=== PATIENT | female | born 1980 | race Caucasian/White ===

== ENCOUNTER → 2016-11-29 16:26 | Outpatient (CLI) | payer OTHER ==
[2015-06-01 14:14] VITALS: BMI 35.8
[~2016-11-29 16:26] MED LIST: ADDERALL 10 MG10 MG PO; ANOLOR-300 CAPS1 CAP PO; BENADRYL50 MG PO; DEPO-PROVER150 MG/ML IM; HYDROCODONE-APA1 TAB PO; IBUPROFEN800 MG PO; IMITREX50 MG PO; ISOPTO CARPINE15 ML EACH EYE; LYRICA200 MG PO; MS CONTIN30 MG PO; NEURONTIN 300300 MG PO; NEURONTIN 400400 MG PO; PREDNISONE20 MG PO; PSEUDO-GEST60 MG PO; SOMA350 MG PO; VALIUM5 MG PO; VENTOLIN HFA18 GM INH; ZANAFLEX6 MG PO; ZANTAC150 MG PO
[2016-11-29 16:48] LABS: BASOPHILS 0.2 % (0.0-2.0); EOSINOPHILS 2.5 % (0-7); HEMATOCRIT 36.9 % (36.0-48.0); HEMOGLOBIN 11.8 g/dL (12-16); IMMATURE GRANULOCYTES 0.4 % (0-5); LYMPHOCYTES 38.4 % (15-50); MCH 28.3 pg (26.0-34.0); MCV 88.5 fL (80.0-100.0); MEAN PLATELET VOLUME 10.5 fL (7.4-10.4); MONOCYTES 6.5 % (2-11); PLATELET COUNT 230 10x3/uL (130-400); RBC 4.17 10x6/uL (4.00-5.40); RDW 13.2 % (11.5-14.5)
[2016-11-29 17:20] LABS: ALBUMIN 2.9 g/dL (3.4-5.0); ALKALINE PHOSPHATASE 92 U/L (46-116); ALT (SGPT) 38 U/L (10-68); BILIRUBIN - TOTAL 0.21 mg/dL (0.2-1.3); CALC OSMOLALITY 282 mosm/kg (275-300); CALCIUM 8.5 mg/dL (8.5-10.1); CARBON DIOXIDE 26.8 mmol/L (21.0-32.0); CHLORIDE - SERUM 105 mmol/L (98-107); CREATININE - SERUM 0.6 mg/dL (0.6-1.3); GLUCOSE 197 mg/dL (74-106); POTASSIUM - SERUM 3.9 mmol/L (3.5-5.1); PROTEIN - SERUM 6.5 g/dL (6.4-8.2); SODIUM 140 mmol/L (136-145); UREA NITROGEN 9 mg/dL (7-18); eGFR NON AFRICAN AMERICAN > 90 mL/min (90-120)
== END | disposition home or self-care (01) ==
LOC: D.LAB 16:26
PROVIDERS: Family Medicine
DX: R19.7 Diarrhea, unspecified (principal)

== ENCOUNTER 2017-01-03 05:45 | Day surgery (SDC) | payer OTHER ==
[2017-01-02 12:29] LABS: HEMATOCRIT 42.5 % (36.0-48.0); HEMOGLOBIN 13.6 g/dL (12-16); MCH 28.5 pg (26.0-34.0); MCV 89.1 fL (80.0-100.0); MEAN PLATELET VOLUME 10.4 fL (7.4-10.4); RBC 4.77 10x6/uL (4.00-5.40); RDW 13.2 % (11.5-14.5); WBC 12.2 10x3/uL (4.8-10.8)
[~2017-01-03] VITALS: Ht 177.8 cm; Wt 168.7 kg
--- NOTE | ~2017-01-03 | OP ---
PATIENT NAME: ELIZABETH HERNANDEZ MEDICAL RECORD: [id number] :78 LOCATION:[facility] ADMISSION DATE: SURGEON: ALIN WILLIAMSON DPM DATE OF OPERATION: 01/03/2017 PREOPERATIVE DIAGNOSES: Arthritis, right ankle, ruptured anterior talofibular ligament of the right ankle and ruptured calcaneofibular ligament of the right ankle. POSTOPERATIVE DIAGNOSES: Arthritis, right ankle, ruptured anterior talofibular ligament of the right ankle and ruptured calcaneofibular ligament of the right ankle. PROCEDURES: 1. Ankle arthroscopy of the right ankle with extensive debridement. 2. Gastroc recession of the right posterior leg with harvest of the aponeurosis graft for CFL and ATFL repair. 3. CFL repair, right ankle. 4. ATFL repair, right ankle. ANESTHESIA: General with preoperative popliteal block per the anesthesia department as well as infiltration of Marcaine in the ankle joint, approximately 10 cc preoperatively. HEMOSTASIS: Right thigh tourniquet at 350 mmHg. PREOPERATIVE DETAILS: The patient was taken to the OR and placed on the operative table in supine position. This was followed by induction of general anesthesia. The right extremity was then prepped and draped in usual aseptic technique. Infiltration of Marcaine was then performed 10 cc in right ankle joint. The right extremity was then exsanguinated and the tourniquet was inflated. PROCEDURE #1: Ankle scope of the right ankle. A small stab incision was made over the anterolateral aspect of the right ankle. Dissection was carried down to the joint capsule, which was punctured bluntly with a blunt trocar and cannula. The camera was then inserted in the lateral portal. 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 At this time, a small stab incision was made over the anterior medial shoulder of the ankle joint. Dissection was carried down to the ankle joint bluntly and the joint was punctured with a blunt trocar and cannula. The synovial shaver was then introduced medially and the joint was debrided both the hypertrophied capsule as well as the chondromalacia. A ball shaver was then introduced and the spurring on the anterior dorsal aspect of the talus, spurring was removed. Range of motion was evaluated under the arthroscopy noted to be normal dorsiflexion, plantar flexion and inversion. There was increased talar tilt, which was significant. There was also significant anterior drawer with displacement of the talus anteriorly. The portals were switched with the camera medial and the debrider lateral. Continued extensive debridement was performed at the hypertrophied capsule as well as the chondromalacia. Upon running the camera along the gutters of the ankle joint, there was noted to be a total disruption of the ATFL. CFL was not visualized due to its extracapsular nature. The camera and shaver were then removed. PROCEDURE #2: Gastroc recession with harvesting of graft on the right posterior OPERATIVE REPORT [id number] [facility] with the hip held in flexion with the leg extended. The posterior aspect of the right leg was acquired. A small 4-cm linear incision was made over the first posterior aspect of the gastroc aponeurosis. Dissection was carried down bluntly through adipose tissue to the paratenon. An linear incision was made in the paratenon, fraying the aponeurosis. An 8 cm x 1 cm graft was then removed from the aponeurosis. The aponeurosis was then repaired with 2-0 Vicryl. The subcutaneous tissue was closed with 4-0 Rapide and the skin was closed with skin tatiana. The graft was placed immediately in saline solution. PROCEDURE #3: CFL repair, right ankle. The small stab incision that was over the lateral shoulder of the ankle was extended distally and posteriorly underneath the fibula in a J shape. The incision was deepened down through subcutaneous tissue through adipose tissue. There was significant adipose tissue in this area, which was resected and removed from the wound. Dissection was carried down to the joint capsule where a capsular incision was made at the ankle joint, giving access to the anterior lateral aspect of the ankle joint. Dissection was carried down through the deep tissue distal to the fibula, giving access to the CFL. The peroneal tendons were retracted in the wound giving access to the lateral wall of the calcaneus. Small drill holes were made in the calcaneus with implant into the calcaneus with the internal brace attached to the anchor. A small drill hole was then drilled in the fibula in the location of the attachments of the CF ligament. At this time, utilizing bone anchors, the internal brace was secured from the calcaneus to the distal fibula with the anatomical coursing of the CFL. Once this was in place, the part of the graft that was harvested was then laid over the top of the internal brace and sutured in place with 0 FiberWire and 2-0 FiberWire giving an excellent rigid fixation. Upon completion of the repair of the CFL ligament, there was normal inversion of the foot, but there was no more talar tilt with inversion of the foot. Tailor tilt was now reduced to about 2 degrees. PROCEDURE #4: ATFL repair, right ankle. The internal brace was used to repair the ATFL or reconstruct it. Similar to the CFL repair, a drill hole was made in the lateral aspect of the talus, anterior to the cartilaginous surface. Another drill hole was made in the distal anterior fibula. The anchor was placed in the talus first with the internal brace connected and then an anchor was placed in the fibula with the internal brace connected as well with the foot held in dorsiflexion giving excellent repair of the ATFL and stability of the ankle joint, both in plantarflexion, dorsiflexion, anterior drawer, as well as inversion stress test. Following internal brace, I did use the remainder of the aponeurosis graft, laid over the internal brace on the ATFL, secured it securely in the periosteal tissue, both the talus and the fibula. The wound was flushed. The modified Brostrom was then performed gathering the deep tissue and securing it to the fibula, giving added security to the ankle ligaments. A 2-0 Vicryl was also used to close deep tissue, 4-0 Rapide was used to close the subcutaneous tissue and 4-0 Rapide in a subcuticular technique was used to close the skin. The medial incision over the anterior medial shoulder of the ankle was closed with 4-0 Rapide in a simple interrupted technique. These incisions were topped with a Dermabond. Adaptic, 4 x 4 and Conform were used to dress all wounds followed by application of a modified Flowers compression dressing. Tourniquet was deflated. POSTOPERATIVE DETAILS: The patient tolerated the procedure well and left the OR with vital signs stable and vascular status at preoperative levels. The patient was transported to recovery per anesthesia in stable condition. OPERATIVE REPORT [id number] ELIZABETH HERNANDEZ TRANSINT:[id number] Voice Confirmation ID: [id number] DOCUMENT ID: [id number] ALIN WILLIAMSON DPM CC: [id number] DICTATION DATE: 01/03/17 1019 [place] MAN: 01/03/17 1656 [facility] 01/03/17 [place] [id number] [place] [id number]
[~2017-01-03 05:45] MED LIST changes: -ANOLOR-300 CAPS1 CAP PO; -IMITREX50 MG PO; -MS CONTIN30 MG PO; -NEURONTIN 400400 MG PO; -VENTOLIN HFA18 GM INH; -ZANAFLEX6 MG PO
[2017-01-03] MEDS ORDERED: NEURONTIN 400400 MG PO (05:59)
[2017-01-03] MEDS ORDERED: ANOLOR-300 CAPS1 CAP PO (06:02)
[2017-01-03] MEDS ORDERED: ZANAFLEX6 MG PO (06:03)
[2017-01-03] MEDS ORDERED: MS CONTIN30 MG PO (06:03)
[2017-01-03] MEDS ORDERED: IMITREX50 MG PO (06:04)
[2017-01-03] MEDS ORDERED: VENTOLIN HFA18 GM INH (06:14)
[2017-01-03 06:16] VITALS: BP 120/63; Ht 177.8 cm; Wt 168.7 kg
[2017-01-03 07:12] LABS: HCG SERUM NEGATIVE (NEGATIVE)
--- NOTE | 2017-01-03 10:20 | NUR ---
THE PATIENT AWAKENED WITH HER CHRONIC BACK PAIN
--- NOTE | 2017-01-03 12:30 | NUR ---
FAMILY FOR [facility] HAS ARRIVED. DISCHARGED HOME VIA .
== END 2017-01-03 12:30 | disposition home or self-care (01) ==
LOC: D.OPS 05:45 → D.PAN 07:30 → D.OPS 07:30 → D.PAN 08:30 → D.OPS 08:30
PROVIDERS: Anesthesiology
DX: M13.871 Other specified arthritis, right ankle and foot (principal); S93.491A Sprain of other ligament of right ankle, initial encounter; S93.411A Sprain of calcaneofibular ligament of right ankle, initial encounter

== ENCOUNTER 2017-01-21 06:06 | Emergency (ER) | payer OTHER ==
[2017-01-03 06:16] VITALS: BMI 53.4
[~2017-01-21 06:06] MED LIST changes: +ANOLOR-300 CAPS1 CAP PO; +IMITREX50 MG PO; +MS CONTIN30 MG PO; +NEURONTIN 400400 MG PO; +VENTOLIN HFA18 GM INH; +ZANAFLEX6 MG PO
[2017-01-21 07:11] LABS: BASOPHILS 0.2 % (0-2); EOSINOPHILS 0.1 % (0-7); HEMOGLOBIN 15.5 g/dL (12-16); IMMATURE GRANULOCYTES 0.5 % (0-5); LYMPHOCYTES 22.7 % (15-50); MCH 27.9 pg (26.0-34.0); MCHC 32.3 g/dL (31.0-37.0); MCV 86.5 fL (80.0-100.0); MEAN PLATELET VOLUME 11.5 fL (7.4-10.4); MONOCYTES 4.6 % (2-11); NEUTROPHILS 71.9 % (40-80); RBC 5.55 10x6/uL (4.00-5.40); RDW 13.4 % (11.5-14.5); WBC 12.3 10x3/uL (4.8-10.8)
[2017-01-21 07:12] LABS: PLATELET COUNT 375 10x3/uL (130-400)
[2017-01-21 07:32] LABS: ALBUMIN 3.9 g/dL (3.4-5.0); ANION GAP 21.8 mmol/L (8-16); BILIRUBIN - TOTAL 0.21 mg/dL (0.2-1.3); CALCIUM 10.5 mg/dL (8.5-10.1); CARBON DIOXIDE 21.9 mmol/L (21.0-32.0); CREATININE - SERUM 1.1 mg/dL (0.6-1.3); POTASSIUM - SERUM 3.7 mmol/L (3.5-5.1); PROTEIN - SERUM 8.8 g/dL (6.4-8.2)
[2017-01-21 07:55] LABS: MAGNESIUM - SERUM 1.8 mg/dL (1.8-2.4)
[2017-01-21 07:58] LABS: APPEARANCE CLEAR (CLEAR); BILIRUBIN NEGATIVE (NEGATIVE); COLOR YELLOW (YELLOW); GLUCOSE 500 mg/dL (NEGATIVE); KETONE MODERATE mg/dL (NEGATIVE); LEUKOCYTE ESTERASE NEGATIVE (NEGATIVE); NITRITE NEGATIVE (NEGATIVE); PROTEIN TRACE mg/dL (NEGATIVE); UROBILINOGEN NORMAL (NORMAL)
[2017-01-21 16:01] LABS: HEMOGLOBIN A1C 9.5 % (4.8-6.0)
== END 2017-01-21 12:15 | disposition home or self-care (01) ==
LOC: D.ER 06:06
PROVIDERS: Emergency Medicine
DX: A08.4 Viral intestinal infection, unspecified (principal); E86.0 Dehydration; R00.0 Tachycardia, unspecified

== ENCOUNTER 2017-01-24 20:30 | Observation (INO) | payer OTHER ==
[~2017-01-24] VITALS: Ht 177.8 cm; Wt 158.3 kg
[2017-01-25 02:27] LABS: BASOPHILS 0.3 % (0-2); EOSINOPHILS 0.8 % (0-7); HEMATOCRIT 46.9 % (36.0-48.0); HEMOGLOBIN 15.5 g/dL (12-16); IMMATURE GRANULOCYTES 0.3 % (0-5); LYMPHOCYTES 43.5 % (15-50); MCH 28.2 pg (26.0-34.0); MCV 85.4 fL (80.0-100.0); MEAN PLATELET VOLUME 10.8 fL (7.4-10.4); NEUTROPHILS 48.1 % (40-80); RBC 5.49 10x6/uL (4.00-5.40); RDW 13.9 % (11.5-14.5); WBC 10.9 10x3/uL (4.8-10.8)
[2017-01-25 02:33] LABS: KETONE - SERUM NEGATIVE (NEGATIVE)
[2017-01-25 02:35] LABS: PLATELET COUNT 274 10x3/uL (130-400)
[2017-01-25 02:41] LABS: ALKALINE PHOSPHATASE 149 U/L (46-116); ALT (SGPT) 33 U/L (10-68); BILIRUBIN - TOTAL 0.26 mg/dL (0.2-1.3); CALC OSMOLALITY 288 mosm/kg (275-300); CALCIUM 10.1 mg/dL (8.5-10.1); CARBON DIOXIDE 23.2 mmol/L (21.0-32.0); CHLORIDE - SERUM 99 mmol/L (98-107); CREATININE - SERUM 1.2 mg/dL (0.6-1.3); MAGNESIUM - SERUM 1.8 mg/dL (1.8-2.4); POTASSIUM - SERUM 3.3 mmol/L (3.5-5.1); PROTEIN - SERUM 8.8 g/dL (6.4-8.2); SODIUM 140 mmol/L (136-145); UREA NITROGEN 13 mg/dL (7-18); eGFR NON AFRICAN AMERICAN 53 mL/min (90-120)
[2017-01-25 02:44] LABS: GLUCOSE 276 mg/dL (74-106)
[2017-01-25 09:30] VITALS: BMI 50.1
[2017-01-25 12:30] VITALS: BP 142/116
--- NOTE | 2017-01-25 12:30 | NUR ---
PT AWAKE AND ALERT. TEMP 99.2(0). HR-122 BPM, RESP-20 BPM, BP-140/116. V/S REPORTED TO RN ON SHIFT.
--- NOTE | 2017-01-25 13:43 | NUR ---
METOPROL 50MG GIVEN PO FOR ELEVATED B/P. PT AWAKE AND ALERT AND SITTING UP IN BED.
[2017-01-25 15:00] VITALS: Ht 177.8 cm; Wt 158.3 kg
--- NOTE | 2017-01-25 15:24 | NUR ---
DR CORREA ROOM 1500. THIS NURSE INFORMED OF BLOOD PRESSURE READING OF 142/116. PHYSICIAN STATES THAT HE WILL ADDRESS THE POSSIBILITY OF ADDITIONAL MEDICATION WHEN HE GETS TO A COMPUTOR.
--- NOTE | 2017-01-25 15:48 | NUR ---
PHARMACY NOTIFIED OF NEED FOR PT MEDICATIONS- PROTONIX, NEUROTIN AND LYRICA.
--- NOTE | 2017-01-25 16:17 | NUR ---
PT REQUESTS HOLDING PROTONIX FOR ONE HOUR SO OTHER MEDICATIONS WILL ABSORB. THANK YOU.
--- NOTE | 2017-01-25 16:50 | NUR ---
PT RESTING QUIETLY WITH EYES CLOSED. TEMP 99.3 (0). HR-81 BPM, RESP-16 BPM, BP-91/59.
--- NOTE | 2017-01-25 17:02 | NUR ---
ADMINISTERED 6 UNITS OF HUMALOG ORDERED AND PRESCRIBED ON SLIDING SCALE FOR FSBS OF 275. TOLERATED WELL. S/R UP X 2, BED IN LOWEST POSITION, CALL LIGHT WITHIN REACH. STATES NO FURTHER NEEDS AT THIS TIME.
[2017-01-25 17:35] LABS: THYROID STIMULATING HORMONE 1.16 uIU/mL (0.36-3.74)
--- NOTE | 2017-01-25 18:01 | NUR ---
ALLERGY BANDS IN PLACE.
--- NOTE | 2017-01-25 19:30 | NUR ---
PM ROUNDS MADE, PT VISITING WITH FAMILY AND FRIENDS, INFORMED PT THAT I WILL RETURN SHORTLY TO DO ASSESSMENT, PT VERBALIZES UNDERSTANDING, REQUESTED AND SERVED CUP OF ICE, DENIES FURTHER NEEDS
[2017-01-25 20:20] VITALS: BP 142/95
--- NOTE | 2017-01-25 20:20 | NUR ---
BP 142/95 PT COMPLAINING OF ANXIETY REQUESTED MEDS. EXPLAINED THAT WE WILL CHECK HER MAR. ASKED ABOUT FREQUENCY OF BLOOD SUGAR CHECKS STATED THAT WILL CHECK THE ORDERS. ASKED ABOUT BANDAGE CHANGE FOR ANKLE. EXPLAINED WE WILL BRING IN GAUZE AND TAPE FOR CHANGE WHEN WE BRING MEDS.
--- NOTE | 2017-01-25 20:35 | NUR ---
ASSESSMENT PER FLOW SHEET, SALINE LOCK IN LEFT UPPER CHECT INTACT WITH NO REDNESS OR EDEMA AROUND SITE, TELEMETRY IN PLACE, PT REPORTS FLATUS, NO BM AND VOIDING BY SELF WITH NO DIFFICULTY, DRESSING AROUND RIGHT ANKLE INTACT WITH NO DRAINAGE NOTED, INFORMED PT THAT MELINDA URBAN RN WILL BE IN TO ADM MEDS, PT VERBALIZES UNDERSTANDING, DENIES NEEDS AT THIS TIME, FAMILY AND FRIENDS AT BEDSIDE
--- NOTE | 2017-01-25 21:30 | NUR ---
MEDS GIVEN PER MAR. PROVIDED TEACHING ON LANTUS AND REGULAR INSULINPROVIDED. DSTICK 208. ENC SNACK OF GRAHM CRACKERS AND MILK. EXPLAINED THAT AT NIGHT BLOOD SUGARS CACN DROP WITHOUT A PROTEIN SNACK TO KEEP THEM UP. IV IN LEFT CHEST INFILTRATED. NOTIFIED MD TO RECIEVE ORDERS FOR PO MEDS. PT AGREED STATING SHE IS A HARD STICK AND THEY HAD A VERY HARD TIME GETTING HER IV EARLIER.
--- NOTE | 2017-01-25 22:15 | NUR ---
NIKA STEPHEN NP, PAGED
--- NOTE | 2017-01-25 22:20 | NUR ---
NIKA STEPHEN CALLS UNIT, REPORT OF SALINE LOCK NO LONGER PATENT, AND THAT ATIVAN AND HYDRALAZINE IS IV, ORDERS TO CHANGE TO PO
--- NOTE | 2017-01-25 23:00 | NUR ---
HYDROCODONE GIVEN PER NOV. PT CO PAIN IN THE BACK OF THE LEG FROM PREVIOUS SURGERY. STATED SHE USUALLY TAKES MORPHINE SULFATE ON TIME AND SHE MISSED IT EARLIER SO SHE IS HAVING BREAK THROUGH PAIN.
[2017-01-25 23:45] VITALS: BP 132/73
--- NOTE | 2017-01-25 23:45 | NUR ---
PT RESTING WITH EYES CLOSED, AROUSES TO SOFT VERBAL STIMULATION, VS OBTAINED, PT RATES PAIN 03/12, STATES "OH, IT'S GETTING BETTER, IT'S JUST BECAUSE I'M NOT GETTING MY PAIN PILLS LIKE I TAKE THEM AT HOME, I ONLY TAKE THEM THE BOTTLE SAYS", PT DENIES NEEDS AT THIS TIME
[2017-01-26] VITALS (8 sets, daily range): BP systolic 113–169; BP diastolic 70–116
--- NOTE | 2017-01-26 00:30 | NUR ---
PT RESTING WITH EYES CLOSED, RESP QUIET, NO DISTRESS NOTED, LEFT UNDISTURBED AT THIS TIME
--- NOTE | 2017-01-26 02:33 | NUR ---
PT RESTING WITH EYES CLOSED, RESP QUIET, NO DISTRESS NOTED, LEFT UNDISTURBED AT THIS TIME
--- NOTE | 2017-01-26 03:10 | NUR ---
RECEIVED CALLED FROM TELEMETRY, INFORMED OF HR 156, THIS RN TO ROOM, PT COMING OUT OF BR, GAIT STEADY, PT REPORTS NOT FEELING TOO WELL, PT BACK TO BED FOR EVALUATION, VS INITIATED, TAWANDA SHARP RN, CHARGE NURSE NOTIFIED
--- NOTE | 2017-01-26 03:14 | NUR ---
TAWANDA SHARP RN TO ROOM FOR EVALUAION, GAVE REPORT OF HR AND BP, WILL CONTINUE TO MONITOR
--- NOTE | 2017-01-26 03:16 | NUR ---
TAWANDA SHARP RN, CHARGE NURSE, CALLED MICHAEL ABBASI RENTAL CAR FERRY DRIVER FOR EVALUATION
--- NOTE | 2017-01-26 03:31 | NUR ---
RECEIVED ATIVAN FROM [facility], THIS RN TO ROOM, ADM ATIVAN SUBLINGUAL PER HYDROLOGY TEACHER SUGGESTION
--- NOTE | 2017-01-26 03:45 | NUR ---
FSBS 188, PT STARTING TO FEEL SOMEWHAT BETTER
--- NOTE | 2017-01-26 03:46 | NUR ---
ADM PAIN MED PO PER MD ORDERS
--- NOTE | 2017-01-26 04:30 | NUR ---
PT TALKING ON PHONE TO MOTHER, RATES ANKLE PAIN 5/10, REPORTS "STARTING TO FEEL BETTER", DENIES NEEDS
--- NOTE | 2017-01-26 06:31 | NUR ---
PT AWAKE, OBTAINED BP 161/95, ADM PROTONIX AND HYDRALAZINE PO PER MD ORDERS, SEE EMAR, FSBS 187, PT UP TO BR WITH ASSISTANCE, PT VOIDED BY SELF WITH NO DIFFICULTY, PT BACK TO BED, DENIES NEEDS AT THIS TIME
--- NOTE | 2017-01-26 07:00 | NUR ---
SHIFT REPORT TO DAY SHIFT
--- NOTE | 2017-01-26 07:37 | NUR ---
LAB TO ROOM. GAVE 2 UNITS FOR BLOOD SUGAR OF 187 USING SLIDING SCALE ORDERED. BREAKFAST SITTING ON BEDSIDE TABLE.
[2017-01-26 08:12] LABS: BASOPHILS 0.2 % (0-2); EOSINOPHILS 1.5 % (0-7); HEMATOCRIT 45.7 % (36.0-48.0); HEMOGLOBIN 14.7 g/dL (12-16); IMMATURE GRANULOCYTES 0.2 % (0-5); LYMPHOCYTES 37.9 % (15-50); MCH 28.2 pg (26.0-34.0); MCHC 32.2 g/dL (31.0-37.0); MEAN PLATELET VOLUME 11.4 fL (7.4-10.4); MONOCYTES 5.6 % (2-11); NEUTROPHILS 54.6 % (40-80); PLATELET COUNT 244 10x3/uL (130-400); RBC 5.22 10x6/uL (4.00-5.40); WBC 9.8 10x3/uL (4.8-10.8)
[2017-01-26 08:13] LABS: MCV 87.5 fL (80.0-100.0)
--- NOTE | 2017-01-26 08:24 | NUR ---
FRESH ICEWATER PROVIDED. STATES 'I SET ALARMS FOR ALL MY MEDICATIONS AT HOME AND WHY DON'T MEDS, THAT ARE TO BE GIVEN EVERY EIGHT HOUR, THEY JUST DO IT EVENLY LIKE I DO AT HOME?' EXPLAINED THAT MEDICATIONS ARE GIVEN TO HOSPITAL POLICY AND THAT WE HOPED FOR PEOPLE TO REST DURING NIGHTTIME HOURS IF AT ALL POSSIBLE. STATES UNDERSTANDING.
[2017-01-26 08:37] LABS: ALBUMIN 3.8 g/dL (3.4-5.0); ALKALINE PHOSPHATASE 142 U/L (46-116); ALT (SGPT) 35 U/L (10-68); BILIRUBIN - TOTAL 0.34 mg/dL (0.2-1.3); CALCIUM 9.7 mg/dL (8.5-10.1); CARBON DIOXIDE 25.3 mmol/L (21.0-32.0); CHLORIDE - SERUM 102 mmol/L (98-107); PROTEIN - SERUM 8.5 g/dL (6.4-8.2); SODIUM 139 mmol/L (136-145)
[2017-01-26 08:38] LABS: CALC OSMOLALITY 282 mosm/kg (275-300); CREATININE - SERUM 0.8 mg/dL (0.6-1.3); GLUCOSE 208 mg/dL (74-106); POTASSIUM - SERUM 3.8 mmol/L (3.5-5.1); UREA NITROGEN 9 mg/dL (7-18); eGFR NON AFRICAN AMERICAN 85 mL/min (90-120)
--- NOTE | 2017-01-26 09:30 | NUR ---
PROVIDED MEDICATIONS ORDERED AND REQUESTED. AT BEDSIDE. PT READING BOOK. TALKATIVE. REQUESTS BANDAGE FOR FOOT BE CHANGED. S/R UP X 2, BED IN LOWEST POSITION, CALL LIGHT WITHIN REACH. WILL RETURN AND CHANGE BANDAGE.
--- NOTE | 2017-01-26 10:10 | NUR ---
BANDAGE CHANGED ON ANKLE OF RT FOOT. CLEAN DRY, NON-WEEPING. COVERED WITH NON STICK PAD AND PAPER TAPE. PT IS SMILING AND TALKING. STATES THAT SHE FEELS LESS ANXIOUS AND IS GLAD FOR SOME "WE TIME" WITH HER . STATES NO FURTHER NEEDS AT THIS TIME. WILL CONTINUE TOMONITOR.
--- NOTE | 2017-01-26 11:16 | NUR ---
UP TO BR. AMBULATED WELL AT SIDE. DENIES NEEDS AT THIS TIME.
--- NOTE | 2017-01-26 12:34 | NUR ---
THE 1216 NOTATION ON EMAR ABOUT HUMALOG WAS INCORRECT. PT HAD NOT STARTED EATING. I MISUNDERSTOOD. HER HAD STARTED EATING. FINGER BLOOD STICK WAS PERFORMED AND A LEVEL OF 223 OBTAINED. HUMALOG OF 4 UNITS WAS GIVEN ORDERED ACCORDING TO SLIDING SCALE. PT IS SITTING TALKING WITH AND TYPING ON LAPTOP. STATES NO NEED OF ANXIETY MEDICATION AND THAT HER PAIN IS CONTROLED.
--- NOTE | 2017-01-26 13:15 | NUR ---
NEIGHBORHOOD AIDE TO ROOM TO DISCUSS DIABETES.
--- NOTE | 2017-01-26 13:20 | NUR ---
DR. ENRIQUEZ TO ROOM.
--- NOTE | 2017-01-26 14:13 | NUR ---
Nutrition Consult: Consult received for diabetic education. Pt reported that she has gained ~120# in the past year. She said that she typically eats low fat foods and limits sweets. Pt stated that she only drinks water. Discussed inportance of consistent meals/snacks with pt, portion sizes, CHO choices/serving sizes. Explained CHO counting and provided examples. Instructed pt to have 3-5 CHO servings/meal and 1-2 CHO servings/snack. Discussed Metformin and importance of eating with meds. Pt stated that she understood information. Pt was encouraged to contact RD with any questions/concerns. Thank you for the consult. RD will continue to follow.
--- NOTE | 2017-01-26 15:45 | NUR ---
RADIOLOGY TO ROOM FOR DOPPLAR OF LEGS.
--- NOTE | 2017-01-26 16:19 | NUR ---
ADMINISTERED NEUROTIN WHEN RECEIVED FROM PHARMACY. SITTING WITH FAMILY AT BEDSIDE. LAUGHING AND SMILING WATCHING TV. STATES NO NEEDS AT THIS TIME.
--- NOTE | 2017-01-26 19:15 | NUR ---
REC'D PT IN BED. VS STABLE. PT AWAKENS TO VERBAL STIMULI. RESP EVEN AND UNLABORED. LUNGS CLEAR BILATERALLY. ABDOMEN SOFT NONDISTENDED. BOWEL SOUNDS PRESENT X4. DRESSING TO R ANKLE C/D/I. PT HAS NOT EATEN SUPPER YET. WILL CHECK BLOOD SUGAR AND ADMINISTER INSULIN BEFORE BEDTIME. PT INQUIRED ABOUT DISCHARGING TONIGHT IF US WAS NEGATIVE. WILL CALL DR. ENRIQUEZ. KELSY KIRKLAND
--- NOTE | 2017-01-26 19:55 | NUR ---
CALLED DR. ENRIQUEZ ABOUT PT GOING HOME [place]. STATED PT MAY DISCHARGE BUT IF SHE NEEDS PAIN MEDICATION WHE WILL HAVE TO WAIT UNTIL MORNING. KELSY KIRKLAND
--- NOTE | 2017-01-26 20:15 | NUR ---
DISCUSSED WITH PT OPTION OF GOING HOME. PT VERBALIZED SHE WOULD WAIT UNTIL MORNING. KELSY KIRKLAND
--- NOTE | 2017-01-26 20:32 | NUR ---
PT REQUESTING PAIN MEDICATION AND ATIVAN FOR ANXIETY. SEE E-MAR FOR MEDICATIONS ADMINISTERED. KELSY KIRKLAND
--- NOTE | 2017-01-26 21:22 | NUR ---
PM MEDS ADMINISTERD ORDERED. S/O PRESENT IN ROOM AND SUPPORTIVE. PT DENIES NEEDS AT THIS TIME. KELSY KIRKLAND
--- NOTE | 2017-01-26 23:55 | NUR ---
SHOWER CHAIR PROVIDED FOR PT TO SHOWER. KELSY KIRKLAND
[2017-01-27 00:07] VITALS: BP 160/92
--- NOTE | 2017-01-27 01:06 | NUR ---
ROOM CHECK, PT RESTING WITH EYES CLOSED. RESP EVEN AND UNLABORED. S/O IN BED WITH PT. KELSY KIRKLAND
--- NOTE | 2017-01-27 02:21 | NUR ---
PT'S FAMILY MEMBER TO DESK WITH REPORT OF PT FEELING LIKE HER HEART IS "RACING" AND IN PAIN. THIS RN TO ROOM. PT C/O PAIN 8/10 IN ANKLE AND REPORTS FEELING LIKE HER HEART IS "RACING." RADIAL PULSE PALPATED @ 100 BPM. TEMP ASSESSED PER PT REQUEST. 99.4 ORALLY AND 98.4 AXILLARY. NORCO 10/325MG X1 TAB GIVEN FOR PAIN AT THIS TIME. FSBS ASSESSED PER PT REQUEST-Lilia. Marino REYES RN TO ROOM AT THIS TIME. PT REQUESTS ATIVAN. Marino REYES RN RESUMES CARE.
[2017-01-27 04:09] VITALS: BP 111/55
[2017-01-27 06:48] LABS: BASOPHILS 0.2 % (0-2); EOSINOPHILS 1.9 % (0-7); HEMATOCRIT 45.6 % (36.0-48.0); HEMOGLOBIN 14.7 g/dL (12-16); IMMATURE GRANULOCYTES 0.1 % (0-5); MCH 28.4 pg (26.0-34.0); MCHC 32.2 g/dL (31.0-37.0); MCV 88.2 fL (80.0-100.0); MEAN PLATELET VOLUME 11.1 fL (7.4-10.4); MONOCYTES 6.3 % (2-11); NEUTROPHILS 44.5 % (40-80); PLATELET COUNT 225 10x3/uL (130-400); RBC 5.17 10x6/uL (4.00-5.40)
[2017-01-27 07:09] LABS: ALBUMIN 3.7 g/dL (3.4-5.0); ALKALINE PHOSPHATASE 135 U/L (46-116); ALT (SGPT) 39 U/L (10-68); CALC OSMOLALITY 282 mosm/kg (275-300); CALCIUM 9.9 mg/dL (8.5-10.1); CARBON DIOXIDE 26.9 mmol/L (21.0-32.0); CHLORIDE - SERUM 101 mmol/L (98-107); CREATININE - SERUM 0.7 mg/dL (0.6-1.3); GLUCOSE 187 mg/dL (74-106); POTASSIUM - SERUM 3.8 mmol/L (3.5-5.1); PROTEIN - SERUM 8.4 g/dL (6.4-8.2); SODIUM 140 mmol/L (136-145); UREA NITROGEN 9 mg/dL (7-18); eGFR NON AFRICAN AMERICAN > 90 mL/min (90-120)
--- NOTE | 2017-01-27 07:45 | NUR ---
PATIENT RESTING WITH EYES CLOSED. MALE VISITOR AT THE BEDSIDE, ASLEEP IN THE BEDSIDE CHAIR.
[2017-01-27] MEDS ORDERED: MS CONTIN30 MG PO (10:01)
[2017-01-27] MEDS ORDERED: HYDROCODONE-APA1 TAB PO (10:01)
[2017-01-27] MEDS ORDERED: LANTUS INSULIN10 ML SC (10:02)
[2017-01-27] MEDS ORDERED: GLUCOPHAGE500 MG PO (10:02)
[2017-01-27 10:10] VITALS: BP 178/110
--- NOTE | 2017-01-27 13:20 | NUR ---
REVIEWED PATIENT'S DISCHARGE INSTRUCTIONS. PRESCRIPTION FOR NORCO AND MS CONTIN GIVEN. SHE UNDERSTANDS THAT SHE NEEDS TO FOLLOW UP WITH A PCP NEXT WEEK. HER BP IS 147/90, HR 108. SHE STATES THAT SHE IS FEELING SOME BETTER SINCE TAKING THE ATIVAN. "THE TIGHT FEELING IN MY CHEST IS GONE." SHE HAS DSCUSSED HER BLOOD PRESSURE WITH DR. ENRIQUEZ THIS MORNING AND UNDERSTANDS THAT SHE ISN'T GOING HOME ON BP MEDICATIONS BUT IS TO DISCUSS THIS WITH HER PCP NEXT WEEK. SHE HAS PRACTICED WITH THE LANTUS PEN AND FEELS CONFIDENT THAT SHE WILL BE ABLE TO MANAGE THIS. SHE ALSO PRACTICED PUNCHING HER FINGER TO OBTAIN A FINGER STICK BLOOD SUGAR READING THIS AFTERNOON. SHE HAS BEEN UP TO THE SHOWER AND IS CURRENTLY RESTING IN HER BED, HOB UP IN SEMI HIGH FOWLERS SHE JUST ATE HER LUNCH. HER RIGHT ANKLE HAS BEEN REDRESSED WITH A DRY DRESSING.
--- NOTE | 2017-01-27 14:24 | NUR ---
PATIENT RESTING IN HER BED, WILL BE LEAVING WHEN RETURNS THIS AFTERNOON. DENIED NEEDS.
[2017-01-27] MEDS ORDERED: TOPROL XL50 MG PO (15:06)
--- NOTE | 2017-01-27 15:10 | NUR ---
CALL PLACED TO DR. ENRIQUEZ, REPORTED BP 163/96 WITH HR 130. NEW ORDERS RECEIVED. NANDA CARR CALLED IN TO [facility] ON [facility]. REPORTED THIS TO THE PATIENT.
--- NOTE | 2017-01-27 15:44 | NUR ---
PATIENT WHEELED OUT TO WAITING VEHICLE.
== END 2017-01-27 15:45 | disposition home or self-care (01) ==
LOC: D.ER 20:30 → D.WS 01-25 05:14 → OBSVTIME 01-25 05:14 → D.WS 01-27 15:45
PROVIDERS: Emergency Medicine; ADMIT Family Medicine
DX: E11.65 Type 2 diabetes mellitus with hyperglycemia (principal); Z79.4 Long term (current) use of insulin; R55 Syncope and collapse; I10 Essential (primary) hypertension; D68.51 Activated protein C resistance; Z86.718 Personal history of other venous thrombosis and embolism; R00.0 Tachycardia, unspecified

== ENCOUNTER 2017-02-04 02:03 | Emergency (ER) | payer OTHER ==
[2017-01-25 15:00] VITALS: BMI 50.0
[~2017-02-04 02:03] MED LIST changes: +GLUCOPHAGE500 MG PO; +LANTUS INSULIN10 ML SC; +TOPROL XL50 MG PO
[2017-02-04 04:18] LABS: BASOPHILS 0.2 % (0-2); EOSINOPHILS 1.8 % (0-7); HEMATOCRIT 41.4 % (36.0-48.0); HEMOGLOBIN 13.4 g/dL (12-16); IMMATURE GRANULOCYTES 0.3 % (0-5); LYMPHOCYTES 39.6 % (15-50); MCH 28.4 pg (26.0-34.0); MCHC 32.4 g/dL (31.0-37.0); MCV 87.7 fL (80.0-100.0); MEAN PLATELET VOLUME 11.2 fL (7.4-10.4); MONOCYTES 4.3 % (2-11); NEUTROPHILS 53.8 % (40-80); PLATELET COUNT 182 10x3/uL (130-400); RBC 4.72 10x6/uL (4.00-5.40); RDW 14.3 % (11.5-14.5); WBC 10.6 10x3/uL (4.8-10.8)
[2017-02-04 04:32] LABS: ALBUMIN 3.5 g/dL (3.4-5.0); ALKALINE PHOSPHATASE 127 U/L (46-116); ALT (SGPT) 45 U/L (10-68); BILIRUBIN - TOTAL 0.21 mg/dL (0.2-1.3); CALC OSMOLALITY 282 mosm/kg (275-300); CALCIUM 9.2 mg/dL (8.5-10.1); CARBON DIOXIDE 23.9 mmol/L (21.0-32.0); CHLORIDE - SERUM 105 mmol/L (98-107); CREATININE - SERUM 0.8 mg/dL (0.6-1.3); GLUCOSE 210 mg/dL (74-106); POTASSIUM - SERUM 3.9 mmol/L (3.5-5.1); PROTEIN - SERUM 7.6 g/dL (6.4-8.2); SODIUM 139 mmol/L (136-145); UREA NITROGEN 11 mg/dL (7-18); eGFR NON AFRICAN AMERICAN 85 mL/min (90-120)
== END 2017-02-04 05:10 | disposition home or self-care (01) ==
LOC: D.ER 02:03
PROVIDERS: Emergency Medicine
DX: M79.662 Pain in left lower leg (principal); H40.9 Unspecified glaucoma

== ENCOUNTER 2017-05-05 19:19 | Emergency (ER) | payer OTHER ==
[2017-01-25 15:00] VITALS: BMI 50.0
[2017-05-05 21:06] LABS: APPEARANCE HAZY (CLEAR); BILIRUBIN NEGATIVE (NEGATIVE); COLOR DK YELLOW (YELLOW); GLUCOSE NEGATIVE (NEGATIVE); KETONE NEGATIVE (NEGATIVE); LEUKOCYTE ESTERASE NEGATIVE (NEGATIVE); NITRITE NEGATIVE (NEGATIVE); PROTEIN NEGATIVE (NEGATIVE); SPECIFIC GRAVITY 1.025 (1.005-1.020); UROBILINOGEN NORMAL (NORMAL)
== END 2017-05-05 21:47 | disposition home or self-care (01) ==
LOC: D.ER 19:19
PROVIDERS: Physician Assistant Medical
DX: E11.65 Type 2 diabetes mellitus with hyperglycemia (principal); Z79.4 Long term (current) use of insulin; R51 Headache; R53.1 Weakness

== ENCOUNTER 2017-05-17 19:18 | Emergency (ER) | payer OTHER ==
[2017-01-25 15:00] VITALS: BMI 50.0
[2017-05-17 20:57] LABS: BASOPHILS 0.1 % (0-2); EOSINOPHILS 0.7 % (0-7); HEMATOCRIT 39.5 % (36.0-48.0); IMMATURE GRANULOCYTES 0.1 % (0-5); LYMPHOCYTES 31.1 % (15-50); MCH 28.6 pg (26.0-34.0); MCHC 32.9 g/dL (31.0-37.0); MEAN PLATELET VOLUME 9.9 fL (7.4-10.4); MONOCYTES 4.4 % (2-11); NEUTROPHILS 63.6 % (40-80); RBC 4.54 10x6/uL (4.00-5.40); RDW 13.8 % (11.5-14.5); WBC 10.2 10x3/uL (4.8-10.8)
[2017-05-17 20:58] LABS: PLATELET COUNT 231 10x3/uL (130-400)
[2017-05-17 21:18] LABS: APPEARANCE HAZY (CLEAR); COLOR YELLOW (YELLOW)
[2017-05-17 21:20] LABS: ALBUMIN 3.4 g/dL (3.4-5.0); ALKALINE PHOSPHATASE 115 U/L (46-116); ALT (SGPT) 28 U/L (10-68); BILIRUBIN - TOTAL 0.16 mg/dL (0.2-1.3); CALC OSMOLALITY 281 mosm/kg (275-300); CALCIUM 8.8 mg/dL (8.5-10.1); CARBON DIOXIDE 23.7 mmol/L (21.0-32.0); CHLORIDE - SERUM 105 mmol/L (98-107); CREATININE - SERUM 0.8 mg/dL (0.6-1.3); POTASSIUM - SERUM 3.7 mmol/L (3.5-5.1); PROTEIN - SERUM 7.3 g/dL (6.4-8.2); SODIUM 139 mmol/L (136-145); UREA NITROGEN 22 mg/dL (7-18); eGFR NON AFRICAN AMERICAN 85 mL/min (90-120)
[2017-05-17 21:20] LABS: BACTERIA MODERATE /hpf (NONE SEEN); BILIRUBIN NEGATIVE (NEGATIVE); GLUCOSE NEGATIVE (NEGATIVE); KETONE NEGATIVE (NEGATIVE); LEUKOCYTE ESTERASE TRACE (NEGATIVE); MUCUS <1+ /lpf (NONE SEEN); NITRITE NEGATIVE (NEGATIVE); PROTEIN NEGATIVE (NEGATIVE); RED CELLS - URINE RARE /hpf (0-5); UROBILINOGEN NORMAL (NORMAL); WHITE CELLS - URINE 0-5 /hpf (0-5)
[2017-05-17 21:21] LABS: GLUCOSE 121 mg/dL (74-106)
[2017-05-17 21:23] LABS: CREATINE KINASE 54 UL (21-215); MAGNESIUM - SERUM 1.7 mg/dL (1.8-2.4); TROPONIN-I < 0.017 ng/mL (0.000-0.060)
== END 2017-05-17 21:41 | disposition home or self-care (01) ==
LOC: D.ER 19:18
PROVIDERS: Emergency Medicine
DX: R07.9 Chest pain, unspecified (principal)

== ENCOUNTER → 2017-07-12 13:50 | Outpatient (CLI) | payer OTHER ==
[2017-01-25 15:00] VITALS: BMI 50.0
[~2017-07-12 13:50] MED LIST changes: +ATIVAN1 MG PO; +FLUTICASONE PRO16 GM NASAL; +GLUCOPHAGE1000 MG PO; +ZANAFLEX4 MG PO; -ZANAFLEX6 MG PO
== END | disposition home or self-care (01) ==
LOC: D.MRI 13:30
DX: S83.221A Peripheral tear of medial meniscus, current injury, right knee, initial encounter (principal); X58.XXXA Exposure to other specified factors, initial encounter; Y93.89 Activity, other specified; Y92.029 Unspecified place in mobile home as the place of occurrence of the external cause

== ENCOUNTER 2017-07-16 09:13 | Emergency (ER) | payer MEDICAID ==
[2017-01-25 15:00] VITALS: BMI 50.0
[~2017-07-16 09:13] MED LIST changes: -ATIVAN1 MG PO; -FLUTICASONE PRO16 GM NASAL; -GLUCOPHAGE1000 MG PO
[2017-07-19] MEDS ORDERED: GLUCOPHAGE1000 MG PO (14:07)
[2017-07-19] MEDS ORDERED: HYDROCODONE-APA1 TAB PO (14:09)
[2017-07-19] MEDS ORDERED: ATIVAN1 MG PO (14:10)
[2017-07-19] MEDS ORDERED: FLUTICASONE PRO16 GM NASAL (14:13)
== END 2017-07-16 14:34 | disposition home or self-care (01) ==
LOC: D.ER 09:13
DX: S83.91XA Sprain of unspecified site of right knee, initial encounter (principal); X58.XXXA Exposure to other specified factors, initial encounter; Y93.89 Activity, other specified; Y92.029 Unspecified place in mobile home as the place of occurrence of the external cause; S83.241A Other tear of medial meniscus, current injury, right knee, initial encounter; I10 Essential (primary) hypertension

== ENCOUNTER 2017-07-20 05:11 | Day surgery (SDC) | payer MEDICAID ==
[2017-07-19 15:31] LABS: HEMATOCRIT 45.7 % (36.0-48.0); MCH 28.5 pg (26.0-34.0); MCHC 32.8 g/dL (31.0-37.0); MCV 86.9 fL (80.0-100.0); MEAN PLATELET VOLUME 10.3 fL (7.4-10.4); RBC 5.26 10x6/uL (4.00-5.40)
[2017-07-19 15:47] LABS: CALC OSMOLALITY 284 mosm/kg (275-300); CALCIUM 9.8 mg/dL (8.5-10.1); CARBON DIOXIDE 21.3 mmol/L (21.0-32.0); CHLORIDE - SERUM 103 mmol/L (98-107); CREATININE - SERUM 0.7 mg/dL (0.6-1.3); GLUCOSE 152 mg/dL (74-106); POTASSIUM - SERUM 4.3 mmol/L (3.5-5.1); SODIUM 141 mmol/L (136-145); UREA NITROGEN 15 mg/dL (7-18); eGFR NON AFRICAN AMERICAN > 90 mL/min (90-120)
[~2017-07-20] VITALS: Ht 175.3 cm; Wt 158.3 kg
[~2017-07-20 05:11] MED LIST changes: +ATIVAN1 MG PO; +FLUTICASONE PRO16 GM NASAL; +GLUCOPHAGE1000 MG PO
[2017-07-20 08:11] VITALS: BP 146/101; Ht 175.3 cm; Wt 158.3 kg
[2017-07-20 08:18] LABS: HCG URINE NEGATIVE (NEGATIVE)
[2017-07-20] MEDS ORDERED: HYDROCODONE-APA1 TAB PO (09:31)
--- NOTE | 2017-07-20 13:43 | NUR ---
1115 IV DC WITH CATHER TIP INTACT
--- NOTE | 2017-09-10 16:57 | OP ---
PATIENT NAME: ELIZABETH HERNANDEZ MEDICAL RECORD: [id number] :78 LOCATION:[facility] ADMISSION DATE: SURGEON: MELISSA LORA MD DATE OF OPERATION: 07/20/2017 PREOPERATIVE DIAGNOSIS: Medial meniscus tear of the right knee. POSTOPERATIVE DIAGNOSIS: Medial meniscus tear of the right knee. PROCEDURE: Arthroscopic partial medial meniscectomy. SURGEON: Melissa Lora MD ANESTHESIA: General. INTRAOPERATIVE COMPLICATIONS: None. SUMMARY OF PATHOLOGIC FINDINGS: The patient's peripheral rim tear of the medial meniscus consistent with the preoperative diagnosis. OPERATIVE SUMMARY IN DETAIL: After obtaining the appropriate preoperative orthopedic surgery consent as well as anesthetic consultation, evaluation and clearance, the patient was brought to the operating room and placed on the operating table in supine position. After adequate general laryngeal mask was administered, tourniquet was placed about the proximal aspect of the right lower extremity. Right lower extremity was then prepped and draped in routine sterile fashion. Leg was elevated, exsanguinated, and tourniquet was inflated to 350 mmHg. Routine inferolateral portal was established followed by superomedial portal and inferomedial portal. Diagnostic arthroscopy revealed the patient had complex tear of the posterior horn of the medial meniscus. Combination of arthroscopic resector as well as a meniscotome were utilized to debride the meniscus back to stable meniscal elements. The knee was then insufflated with 30 cc of 0.25% Marcaine with epinephrine and 40 mg of Depo-Medrol. Arthroscopy portals were closed in routine interrupted fashion using 4-0 Prolene. Sterile dressings were applied. The patient was awakened, taken to recovery in stable condition. All final needle and sponge counts were correct. TRANSINT:[id number] Voice Confirmation ID: [id number] DOCUMENT ID: [id number] MELISSA LORA MD at 1657 CC: [id number] DICTATION DATE: 09/07/17 1509 HOSPITAL PRODUCT SPECIALIST: 09/07/17 1545 [facility] 07/20/[address] [id number]
== END 2017-07-20 11:30 | disposition home or self-care (01) ==
LOC: D.OPS 05:11 → D.PAN 08:45 → D.OPS 11:30
PROVIDERS: Anesthesiology; Orthopaedic Surgery
DX: S83.221A Peripheral tear of medial meniscus, current injury, right knee, initial encounter (principal); Z01.812 Encounter for preprocedural laboratory examination; J45.909 Unspecified asthma, uncomplicated; E11.9 Type 2 diabetes mellitus without complications; K21.9 Gastro-esophageal reflux disease without esophagitis

== ENCOUNTER → 2017-09-21 12:03 | Outpatient (CLI) | payer MEDICAID ==
[2017-07-20 08:11] VITALS: BMI 51.6
== END | disposition home or self-care (01) ==
LOC: D.MRI 09-20 10:30
DX: M25.562 Pain in left knee (principal)

== ENCOUNTER 2017-09-23 01:27 | Emergency (ER) | payer MEDICAID ==
[2017-07-20 08:11] VITALS: BMI 51.6
[2017-09-23 02:18] LABS: APPEARANCE CLEAR (CLEAR); BILIRUBIN NEGATIVE (NEGATIVE); COLOR YELLOW (YELLOW); GLUCOSE NEGATIVE (NEGATIVE); KETONE NEGATIVE (NEGATIVE); NITRITE NEGATIVE (NEGATIVE); PROTEIN NEGATIVE (NEGATIVE); UROBILINOGEN NORMAL (NORMAL)
[2017-09-23 02:53] LABS: BASOPHILS 0.2 % (0-2); EOSINOPHILS 1.2 % (0-7); HEMATOCRIT 43.6 % (36.0-48.0); HEMOGLOBIN 13.8 g/dL (12-16); IMMATURE GRANULOCYTES 0.3 % (0-5); MCHC 31.7 g/dL (31.0-37.0); MCV 85.2 fL (80.0-100.0); MEAN PLATELET VOLUME 9.9 fL (7.4-10.4); MONOCYTES 3.7 % (2-11); NEUTROPHILS 59.6 % (40-80); PLATELET COUNT 295 10x3/uL (130-400); RBC 5.12 10x6/uL (4.00-5.40); RDW 13.9 % (11.5-14.5); WBC 11.2 10x3/uL (4.8-10.8)
[2017-09-23 03:15] LABS: ALBUMIN 3.7 g/dL (3.4-5.0); ALKALINE PHOSPHATASE 113 U/L (46-116); ALT (SGPT) 33 U/L (10-68); AMYLASE - SERUM 45 U/L (25-115); BILIRUBIN - TOTAL 0.24 mg/dL (0.2-1.3); CALC OSMOLALITY 276 mosm/kg (275-300); CALCIUM 9.3 mg/dL (8.5-10.1); CARBON DIOXIDE 27.6 mmol/L (21.0-32.0); CHLORIDE - SERUM 100 mmol/L (98-107); CREATINE KINASE 49 UL (21-215); GLUCOSE 118 mg/dL (74-106); LIPASE 161 U/L (73-393); POTASSIUM - SERUM 3.7 mmol/L (3.5-5.1); SODIUM 137 mmol/L (136-145); TROPONIN-I < 0.017 ng/mL (0.000-0.060); UREA NITROGEN 18 mg/dL (7-18); eGFR NON AFRICAN AMERICAN 66 mL/min (90-120)
== END 2017-09-23 04:00 | disposition home or self-care (01) ==
LOC: D.ER 01:27
PROVIDERS: Emergency Medicine
DX: M54.5 Low back pain (principal); S39.012A Strain of muscle, fascia and tendon of lower back, initial encounter; X58.XXXA Exposure to other specified factors, initial encounter; Y93.89 Activity, other specified; Y92.89 Other specified places as the place of occurrence of the external cause; I10 Essential (primary) hypertension

== ENCOUNTER 2017-10-04 10:33 | Emergency (ER) | payer MEDICAID ==
[2017-07-20 08:11] VITALS: BMI 51.6
== END 2017-10-04 15:40 | disposition home or self-care (01) ==
LOC: D.ER 10:33
DX: S00.93XA Contusion of unspecified part of head, initial encounter (principal); S40.012A Contusion of left shoulder, initial encounter; S70.02XA Contusion of left hip, initial encounter; S90.02XA Contusion of left ankle, initial encounter; W10.9XXA Fall (on) (from) unspecified stairs and steps, initial encounter; Y93.89 Activity, other specified; Y92.019 Unspecified place in single-family (private) house as the place of occurrence of the external cause

== ENCOUNTER 2017-10-04 18:15 | Emergency (ER) | payer MEDICAID ==
[2017-07-20 08:11] VITALS: BMI 51.6
[2017-10-04 19:15] LABS: BASOPHILS 0.1 % (0-2); EOSINOPHILS 1.6 % (0-7); HEMATOCRIT 45.8 % (36.0-48.0); HEMOGLOBIN 14.7 g/dL (12-16); IMMATURE GRANULOCYTES 0.2 % (0-5); LYMPHOCYTES 29.9 % (15-50); MCH 27.9 pg (26.0-34.0); MCHC 32.1 g/dL (31.0-37.0); MCV 86.9 fL (80.0-100.0); MEAN PLATELET VOLUME 10.1 fL (7.4-10.4); NEUTROPHILS 63.2 % (40-80); PLATELET COUNT 289 10x3/uL (130-400); RBC 5.27 10x6/uL (4.00-5.40); WBC 12.8 10x3/uL (4.8-10.8)
[2017-10-04 19:34] LABS: ALBUMIN 3.9 g/dL (3.4-5.0); ALKALINE PHOSPHATASE 137 U/L (46-116); ALT (SGPT) 42 U/L (10-68); BILIRUBIN - TOTAL 0.23 mg/dL (0.2-1.3); CALC OSMOLALITY 282 mosm/kg (275-300); CALCIUM 9.6 mg/dL (8.5-10.1); CARBON DIOXIDE 28.9 mmol/L (21.0-32.0); CHLORIDE - SERUM 103 mmol/L (98-107); CREATININE - SERUM 0.9 mg/dL (0.6-1.3); GLUCOSE 111 mg/dL (74-106); PROTEIN - SERUM 8.6 g/dL (6.4-8.2); SODIUM 141 mmol/L (136-145); UREA NITROGEN 16 mg/dL (7-18); eGFR NON AFRICAN AMERICAN 74 mL/min (90-120)
[2017-10-04 19:45] LABS: CKMB 0.4 U/L (0.0-3.6); CREATINE KINASE 48 UL (21-215)
[2017-10-04 19:51] LABS: TROPONIN-I < 0.017 ng/mL (0.000-0.060)
== END 2017-10-04 21:27 | disposition home or self-care (01) ==
LOC: D.ER 18:15
PROVIDERS: Family Medicine
DX: R55 Syncope and collapse (principal); S06.0X0A Concussion without loss of consciousness, initial encounter; X58.XXXA Exposure to other specified factors, initial encounter; Y93.89 Activity, other specified; Y92.531 Health care provider office as the place of occurrence of the external cause; S16.1XXA Strain of muscle, fascia and tendon at neck level, initial encounter; I10 Essential (primary) hypertension; R00.0 Tachycardia, unspecified

== ENCOUNTER 2017-10-16 07:55 | Emergency (ER) | payer MEDICAID ==
[2017-07-20 08:11] VITALS: BMI 51.6
== END 2017-10-16 10:52 | disposition home or self-care (01) ==
LOC: D.ER 07:55
DX: J20.9 Acute bronchitis, unspecified (principal); I10 Essential (primary) hypertension

== ENCOUNTER 2017-11-09 05:10 | Emergency (ER) | payer MEDICAID ==
[2017-07-20 08:11] VITALS: BMI 51.6
[2017-11-09 05:56] LABS: BASOPHILS 0.1 % (0-2); EOSINOPHILS 1.5 % (0-7); HEMATOCRIT 41.9 % (36.0-48.0); HEMOGLOBIN 13.6 g/dL (12-16); IMMATURE GRANULOCYTES 0.4 % (0-5); MCH 27.8 pg (26.0-34.0); MCHC 32.5 g/dL (31.0-37.0); MCV 85.7 fL (80.0-100.0); MEAN PLATELET VOLUME 9.7 fL (7.4-10.4); MONOCYTES 3.8 % (2-11); NEUTROPHILS 69.2 % (40-80); RBC 4.89 10x6/uL (4.00-5.40); RDW 14.5 % (11.5-14.5); WBC 11.7 10x3/uL (4.8-10.8)
[2017-11-09 06:00] LABS: PLATELET COUNT 228 10x3/uL (130-400)
[2017-11-09 06:04] LABS: APTT 23.3 SECONDS (22.8-39.4); INR 0.9 (0.85-1.17); PROTIME 11.7 SECONDS (11.6-15.0)
[2017-11-09 06:05] LABS: D-DIMER-QUANTITATIVE 1.93 ug/mLFEU (0.20-0.54)
[2017-11-09 06:17] LABS: ALBUMIN 3.1 g/dL (3.4-5.0); ALKALINE PHOSPHATASE 118 U/L (46-116); ALT (SGPT) 22 U/L (10-68); BILIRUBIN - TOTAL 0.14 mg/dL (0.2-1.3); CALC OSMOLALITY 283 mosm/kg (275-300); CALCIUM 8.7 mg/dL (8.5-10.1); CARBON DIOXIDE 23.6 mmol/L (21.0-32.0); CHLORIDE - SERUM 101 mmol/L (98-107); CREATININE - SERUM 0.8 mg/dL (0.6-1.3); POTASSIUM - SERUM 4.1 mmol/L (3.5-5.1); PROTEIN - SERUM 7.2 g/dL (6.4-8.2); SODIUM 134 mmol/L (136-145); UREA NITROGEN 14 mg/dL (7-18); eGFR NON AFRICAN AMERICAN 85 mL/min (90-120)
[2017-11-09 06:22] LABS: CKMB 0.3 U/L (0.0-3.6); CREATINE KINASE 18 UL (21-215); GLUCOSE 368 mg/dL (74-106); MAGNESIUM - SERUM 1.6 mg/dL (1.8-2.4); PRO BNP 52 pg/mL (0-125)
[2017-11-09 06:27] LABS: TROPONIN-I < 0.017 ng/mL (0.000-0.060)
[2017-11-09 10:37] LABS: APPEARANCE HAZY (CLEAR); BILIRUBIN NEGATIVE (NEGATIVE); COLOR STRAW (YELLOW); GLUCOSE 1000 mg/dL (NEGATIVE); KETONE NEGATIVE (NEGATIVE); NITRITE NEGATIVE (NEGATIVE); PROTEIN NEGATIVE (NEGATIVE); UROBILINOGEN NORMAL (NORMAL)
[2017-11-09 10:38] LABS: HCG URINE NEGATIVE (NEGATIVE)
[2018-02-05] MEDS ORDERED: MS CONTIN15 MG PO (11:01)
== END 2017-11-09 12:44 | disposition home or self-care (01) ==
LOC: D.ER 05:10
PROVIDERS: Family Medicine
DX: R06.00 Dyspnea, unspecified (principal); I10 Essential (primary) hypertension; R00.0 Tachycardia, unspecified

== ENCOUNTER → 2017-11-29 09:06 | Outpatient (CLI) | payer MEDICAID ==
[2017-07-20 08:11] VITALS: BMI 51.6
[~2017-11-29 09:06] MED LIST changes: +CATAPRES0.1 MG PO; +DIFLUCAN150 MG PO; +DOXYCYCLINE HY100 M2 PO; +MS CONTIN15 MG PO; +SOLARAZE100 GM TP
[2017-11-30 11:17] LABS: ANA REFLEX - DIRECT Negative (Negative)
[2017-11-30 12:15] LABS: IMMUNOGLOBULIN A 243 mg/dL (87-352); IMMUNOGLOBULIN G 797 mg/dL (700-1600); IMMUNOGLOBULIN M 143 mg/dL (26-217)
[2017-12-05 12:18] LABS: IMMUNOGLOBULIN E 34 IU/mL (0-100)
== END | disposition home or self-care (01) ==
LOC: D.LAB 09:06 → D.CT 10:00
PROVIDERS: Internal Medicine Pulmonary Disease
DX: R09.1 Pleurisy (principal)

== ENCOUNTER 2017-12-05 21:33 | Emergency (ER) | payer MEDICAID ==
[2017-07-20 08:11] VITALS: BMI 51.6
[~2017-12-05 21:33] MED LIST changes: -CATAPRES0.1 MG PO; -DIFLUCAN150 MG PO; -DOXYCYCLINE HY100 M2 PO; -MS CONTIN15 MG PO; -SOLARAZE100 GM TP
[2017-12-05 22:34] LABS: BASOPHILS 0.1 % (0-2); EOSINOPHILS 0.9 % (0-7); HEMATOCRIT 42.1 % (36.0-48.0); HEMOGLOBIN 13.6 g/dL (12-16); IMMATURE GRANULOCYTES 0.2 % (0-5); LYMPHOCYTES 27.6 % (15-50); MCHC 32.3 g/dL (31.0-37.0); MCV 86.8 fL (80.0-100.0); MEAN PLATELET VOLUME 9.9 fL (7.4-10.4); MONOCYTES 4.2 % (2-11); RBC 4.85 10x6/uL (4.00-5.40); WBC 12.8 10x3/uL (4.8-10.8)
[2017-12-05 22:39] LABS: PLATELET COUNT 308 10x3/uL (130-400)
[2017-12-05 22:53] LABS: ALBUMIN 3.5 g/dL (3.4-5.0); ALKALINE PHOSPHATASE 111 U/L (46-116); ALT (SGPT) 28 U/L (10-68); BILIRUBIN - TOTAL 0.21 mg/dL (0.2-1.3); CALC OSMOLALITY 282 mosm/kg (275-300); CALCIUM 8.7 mg/dL (8.5-10.1); CARBON DIOXIDE 26.5 mmol/L (21.0-32.0); CHLORIDE - SERUM 103 mmol/L (98-107); CREATININE - SERUM 0.9 mg/dL (0.6-1.3); POTASSIUM - SERUM 3.6 mmol/L (3.5-5.1); PROTEIN - SERUM 7.8 g/dL (6.4-8.2); SODIUM 140 mmol/L (136-145); UREA NITROGEN 13 mg/dL (7-18); eGFR NON AFRICAN AMERICAN 74 mL/min (90-120)
[2017-12-05 23:00] LABS: GLUCOSE 173 mg/dL (74-106)
[2017-12-05 23:20] LABS: CKMB 0.4 U/L (0.0-3.6); CREATINE KINASE 38 UL (21-215)
[2017-12-05 23:21] LABS: TROPONIN-I < 0.017 ng/mL (0.000-0.060)
[2018-02-05] MEDS ORDERED: MS CONTIN15 MG PO (11:01)
== END 2017-12-06 00:12 | disposition home or self-care (01) ==
LOC: D.ER 21:33
PROVIDERS: Family Medicine
DX: R07.89 Other chest pain (principal); R51 Headache; F17.200 Nicotine dependence, unspecified, uncomplicated; R00.0 Tachycardia, unspecified

== ENCOUNTER → 2017-12-19 13:59 | Outpatient (CLI) | payer MEDICAID ==
[2017-07-20 08:11] VITALS: BMI 51.6
[~2017-12-19 13:59] MED LIST changes: +CATAPRES0.1 MG PO; +DIFLUCAN150 MG PO; +DOXYCYCLINE HY100 M2 PO; +MS CONTIN15 MG PO; +SOLARAZE100 GM TP
== END | disposition home or self-care (01) ==
LOC: D.MRI 13:59
DX: M25.561 Pain in right knee (principal)

== ENCOUNTER 2018-01-03 15:40 | Inpatient (IN) | payer MEDICAID ==
[~2018-01-03] VITALS: Ht 177.8 cm; Wt 156.9 kg
--- NOTE | ~2018-01-03 | HEMODYNAMI ---
PATIENT:ELIZABETH HORAN MEDICAL RECORD: [id number] : 76 LOCATION:[address] [id number] ADMISSION DATE: 01/03/18 Generatedon:01/04/201815:23 Patient name: ELIZABETH HORAN Patient #: [id number] SSN: : 1980 Date of study: 01/04/2018 Page: Of Hemodynamic Procedure Report Patient Data Patient Demographics Procedure consent was obtained First Name: ELIZABETH Gender: Female Last Name: AUNG : 1980 Middle Initial: JOSE Age: 37 year(s) Patient #: [id number] Race: Unknown Additional ID: [id number] Contact details [address]: [address] [place] [address] State: [place] City: [place] Zip code: [address] Admission Admission Data Admission Date: 01/03/2018 Admission Time: 19:58 Room #: D.2127 Height (in.): 69.69 BSA: 2.62 (m2) Height (cm.): 177 BMI: 49.79 (kg/m2) Weight (lbs.): 343.92 Weight (kg.): 156 Lab Results Lab Result Date: 01/04/2018 Lab Result Time: 0:00 Biochemistry Name Units Result Min Max BUN mg/dl 11 --(-*--)-- 7 18 Creatinine mg/dl 0.8 --(-*--)-- 0.6 1.3 CBC Name Units Result Min Max Hemoglobin g/dl 13.9 --(*---)-- 13.5 17.5 Procedure Procedure Types Cath Procedure Diagnostic Procedure [facility] w/Coronaries Procedure Description Procedure Date Procedure Date: 01/04/2018 Procedure Start Time: 15:13 Procedure End Time: 15:20 Procedure Staff Name Function Pavel Smith MD Performing Physician Deena Huynh RT Monitor Volodymyr Wise RN Nurse Kristi Olvera RT Scrub Procedure Data Cath Procedure Fluoroscopy Diagnostic fluoroscopy Total fluoroscopy Time: 1.8 time: 1.8 min min Diagnostic fluoroscopy Total fluoroscopy dose: 501 dose: 501 mGy mGy Contrast Material Contrast Material Type Amount (ml) Isovue 300 49 Entry Location Entry Primary Successful Side Size Upsize Upsize Entry Closure Melendez ccessful Closure Location (Fr) 1 (Fr) 2 (Fr) Remarks Device Remarks Radial Right 6 Fr Mechanical artery Short Compression Estimated blood loss: 10 ml Diagnostic catheters Device Type Used For End Catheter Placement DIAGNOSTIC Nancy 110cm 5 LV Angiography Fr catheter ([id number]) Procedure Complications No complications Procedure Medications Medication Administration Route Dosage Oxygen etCO2 Nasal cannula 2 l/min Heparin Flush Bag added to field 2 bags (1000units/500ml NS) 0.9% NaCl I.V. 100 ml/hr Radial Cocktail added to field 1 syringe (Verapomil 2mg/Nitro 400mcg/Heparin 1500units) Fentanyl I.V. 50 mcg Versed I.V. 1 mg Fentanyl I.V. 50 mcg Versed I.V. 1 mg Radial Cocktail I.A. 1 syringe (Verapomil 2mg/Nitro 400mcg/Heparin 1500units) Fentanyl I.V. 50 mcg Fentanyl I.V. 50 mcg Hemodynamics Rest BSA: 2.62 (m2) HGB: 13.9 (g/dl) O2 Consumption: Estimated: 291.89 (ml/min) O2 Co nsumption indexed: Estimated:111.41 (ml/min/m) Heart Rate: 95 (bpm) Pressure Samples Time Site Value (mmHg) Purpose Heart Use Rate(bpm) 15:14 LV 101/18,101 Snapshot 97 Gradients Valve Time Site Site Mean SEP/DFP Peak To Heart Use 1 2 (mmHg) (sec/min) Peak Rate (mmHg) (bpm) Aortic 15:14 LV AO 100 Snapshots Pre Cath Intra NCS Post Cath Vital Signs Time Heart Resp SPO2 etCO2 NIBP (mmHg) Rhythm Pain Sedation Rate (ipm) (%) (mmHg) Status Level (bpm) 14:57:48 88 17 96 34.5 137/94(115) NSR 0 (11) 10(A) , No pain 15:02:02 88 17 95 36.8 144/87(109) NSR 0 (11) 10(A) , No pain 15:06:13 90 16 96 35.3 145/90(106) NSR 0 (11) 10(A) , No pain 15:10:29 86 16 95 35.3 142/91(106) NSR 0 (11) 10(A) , No pain 15:15:22 100 16 95 41.3 139/97(116) NSR 0 (11) 10(A) , No pain 15:20:50 91 17 95 39 120/77(94) NSR 0 (11) 10(A) , No pain Medications Time Medication Route Dose Verified Delivered Reason Notes Effectiveness by by 14:58:46 Oxygen etCO2 2 l/min Pavel Helm Per Nasal [facility] Jayme Wise RN physician cannula 14:58:54 Heparin Flush added 2 bags Pavel Helm used for Bag to [facility] Jayme Wise RN procedure (1000units/500ml field HASTINGS NS) 14:59:03 0.9% NaCl I.V. 100 Pavel Helm Per ml/hr [facility] Jayme Wise RN physician 14:59:12 Radial Cocktail added 1 Pavel Helm used for (Verapomil to syringe [facility] Jayme Wise RN procedure 2mg/Nitro field HASTINGS 400mcg/Heparin 1500units) 15:08:22 Fentanyl I.V. 50 mcg Pavel Helm for sedation St Jayme Wise RN, MD 15:08:28 Versed I.V. 1 mg Pavel Helm for sedation St Jayme Wise RN, MD 15:12:15 Fentanyl I.V. 50 mcg Pavel Helm for sedation St Jayme Wise RN, MD 15:12:18 Versed I.V. 1 mg Pavel Helm for sedation St Jayme Wise RN, MD 15:14:17 Radial Cocktail I.A. 1 Pavel Zhao for (Verapomil syringe [facility] vasodilation 2mg/Manny HASTINGS MD 400mcg/Heparin 1500units) 15:15:30 Fentanyl I.V. 50 mcg Pavel Helm for sedation St Jayme Wise RN, MD 15:17:08 Fentanyl I.V. 50 mcg Pavel Rosasy for sedation [facility] Jayme Wise RN, MD Procedure Log Time Note 14:30:48 Deena Huynh RT(R) sent for patient. Start room use. 14:44:38 Patient Height : 69.69 inches 14:44:45 Patient Weight : 343.92 lbs 14:45:19 Lab Result : BUN 11 mg/dl 14:45:19 Lab Result : Creatinine 0.8 mg/dl 14:45:19 Lab Result : Hemoglobin 13.9 g/dl 14:45:46 Diagnostic Cath status Elective 14:45:49 Time tracking: Regular hours (M-F 7:00 - 5:00) 14:45:55 Plan of Care:Hemodynamics will remain stable., Cardiac rhythm will remain stable., Comfort level will be maintained., Respiratory function will remain adequate., Patient/ family verbilizes understanding of procedure., Procedure tolerated without complication., Recovers from procedure without complications.. 14:46:09 Patient received from Pre/Post Procedure Room to CCL 2 Alert and oriented. Tansferred to table in Supine position. 14:46:31 H&P Date Dictated: 01/03/2018 Within 30 days and on chart.. 14:46:35 Pre-procedure instructions explained to patient. 14:46:37 Family in patients room. 14:46:39 Patient NPO since Midnight. 14:46:52 Is the patient allergic to Iodine/contrast media? No. 14:46:54 Was the patient premedicated? Yes 14:56:53 Vital chart was started 14:58:46 Oxygen 2 l/min etCO2 Nasal cannula was administered by Volodymyr Wise RN; Per physician; 14:58:54 Heparin Flush Bag (1000units/500ml NS) 2 bags added to field was administered by Volodymyr Wise RN; used for procedure; 14:59:03 0.9% NaCl 100 ml/hr I.V. was administered by Volodymyr Wise RN; Per physician; 14:59:12 Radial Cocktail (Verapomil 2mg/Nitro 400mcg/Heparin 1500units) 1 syringe added to field was administered by Volodymyr Wise RN; used for procedure; 15:01:31 Is patient on blood thinner?No 15:01:33 Patient diabetic? No. 15:01:38 Snore? Yes 15:01:39 Sleep apnea? No 15:01:51 Airway obstruction? Yes Asthma 15:01:58 Dentures? No Out 15:02:11 Patient pain scale 0/10 ?. 15:02:20 IV patent on arrival in right forearm with 0.9% NaCl at [facility]. 15:02:31 Lab results completed and on chart. 15:02:34 Right Radial & Right Groin area was prepped with chlora-prep and draped in sterile fashion 15:02:36 Alarms reviewed by R. N. 15:02:36 Sharps counted by scrub and verified by R.N. 15:02:41 Warm blankets applied, and thor hugger turned on for patient comfort. 15:02:42 Correct patient and procedure confirmed by team. 15:02:44 Signed procedure consent form obtained from patient. 15:02:44 ECG and BP/O2 sat monitors applied to patient. 15:02:45 Baseline sample Acquired. 15:02:50 Rhythm: sinus rhythm 15::51 Full Disclosure recording started 15:03:04 Physician paged 15:03:05 Physician arrived 15:03:06 --------ALL STOP TIME OUT------ 15:03:06 Final Timeout: patient, procedure, and site verified with staff and physician. All members of the team are in agreement. 15:03:09 Right Radial & Right Groin site verified by team. 15:03:15 Physical assessment completed. ASA score P 2 - A patient with mild systemic disease as per Pavel Smith MD. 15:03:20 Sedation plan: IV Moderate Sedation Medication:Versed, Fentanyl 15:03:25 Use device set Femoral Dx 15:03:26 ACIST Syringe (23189) opened to sterile field. 15:03:26 Bag Decanter (2002S) opened to sterile field. 15:03:27 Medline Cath Pack ([id number]) opened to sterile field. 15:03:27 DIAGNOSTIC WIRE .035 260cm J wire (163103) opened to sterile field. 15:03:28 ACIST Hand Control (29319) opened to sterile field. 15:03:28 ACIST Manifold (39512) opened to sterile field. 15:03:30 Tegaderm 4 x 4 (1626W) opened to sterile field. 15:03:47 SHEATH 6Fr Prelude Radial ([id number]) opened to sterile field. 15:08:22 Fentanyl 50 mcg I.V. was administered by Volodymyr Wise RN; for sedation; 15:08:28 Versed 1 mg I.V. was administered by Volodymyr Wise RN; for sedation; 15:12:15 Fentanyl 50 mcg I.V. was administered by Volodymyr Wise RN; for sedation; 15:12:18 Versed 1 mg I.V. was administered by Volodymyr Wise RN; for sedation; 15:13:08 Procedure started. 15:13:28 Local anesthetic to right radial artery with Lidocaine 2% by Pavel Smith MD.INITIAL ACCESS ONLY 15:13:50 A 6 Fr Short sheath was inserted into the Right Radial artery 15:14:17 Radial Cocktail (Verapomil 2mg/Nitro 400mcg/Heparin 1500units) 1 syringe I.A. was administered by Pavel Smith MD; for vasodilation; 15:14:17 A DIAGNOSTIC Nancy 110cm 5 Fr catheter (088129) was advanced over the wire and used for LV Angiography. 15:14:49 EF : 55 % 15:15:19 LCA angiography performed. 15:15:30 Fentanyl 50 mcg I.V. was administered by Volodymyr Wise RN; for sedation; 15:17:08 Fentanyl 50 mcg I.V. was administered by Volodymyr Wise RN; for sedation; 15:17:39 Catheter removed. 15:17:59 TR BAND Large ([id number]) opened to sterile field. 15:19:06 Sheath removed intact; hemostasis achieved with Mechanical Compression to the Right Radial artery. 15:19:16 Procedure ended.(Physican Out) 15:19:22 Fluoroscopy time 01.80 minutes. 15:19:26 Fluoroscopy dose: 501 mGy 15:19:26 Flurop Dose total: 501 15:19:32 Contrast amount:Isovue 300 49ml. 15:19:33 Sharps counted by scrub and verified by R.N. 15:19:36 TR band inflated with 13cc of air. 15:19:38 Insertion/operative site no bleeding no hematoma. 15:19:39 Post Procedure Pulses reassessed and unchanged 15:19:43 Post procedure rhythm: unchanged. 15:19:45 Estimated blood loss: 10 ml 15:19:49 Post procedure instruction explained to patient.Patient verbalizes understanding. 15:20:08 Procedure and supply charges have been captured, reviewed, submitted and are correct. 15:20:28 Procedure Complication : No complications 15:20:30 Vital chart was stopped 15:20:31 See physician's report for complete and final results. 15:20:33 Report given to Pre/Post Procedure Room. 15:20:36 Patient transfered to Pre/Post Procedure Room with Stretcher. 15:20:38 Procedure ended. 15:20:38 Full Disclosure recording stopped 15:20:54 End room use (Document Last) Device Usage Item Name Manufacture Quantity Catalog Number Hospital Part Current M inimal Lot# / Charge Number Stock Stock Serial# Code ACIST Syringe Acist 1 38774 155867 935360 862547 2 0 (54940) [employer] Bag Decanter Microtek 1 2001S 852844 40301 703635 5 (2001S) Medical Inc. Medline Cath Cardinal 1 [id number] 276763 03440 884154 5 Pack Fabbeo ([id number]) DIAGNOSTIC WIRE St Nnamdi 1 168571 079997 636845 689923 3 0 .035 260cm J wire (609974) ACIST Hand Acist 1 02114 301578 383261 041990 5 Control (47464) [employer] ACIST Manifold Acist 1 37939 564881 174447 181949 5 (70416) [employer] Tegaderm 4 x 4 3M 1 1626W 801153 616421 955168 5 (1626W) SHEATH 6Fr Merit 1 [id number] 025126 382739 980277 5 Prelude Radial Medical ([id number]) DIAGNOSTIC Terumo 1 40-1018 697860 110813 181527 5 Nancy 110cm 5 Fr catheter (351842) TR BAND Large Terumo 1 [id number] 705704 080495 625642 4 0 ([id number]) Signature Audit [place] Stage Time Signature Unsigned Intra-Procedure 01/04/2018 Deena Huynh 3:23:33 PM RT(R) Signatures Monitor : Deena Huynh Signature : RT Date : Time : [facility] [address] [place] [address]
--- NOTE | ~2018-01-03 | EC ---
PATIENT:ELIZABETH HORAN DATE OF SERVICE: 01/03/18 SEX: F MEDICAL RECORD: [id number] DATE OF : [birth year] LOCATION:D. D.212 AGE OF PATIENT: 37 ADMISSION DATE: 01/03/18 REFERRING PHYSICIAN: INTERPRETING PHYSICIAN: STUART OZUNA MD ECHOCARDIOGRAM REPORT ECHO CHARGES Date: CLINICAL DIAGNOSIS: ECHOCARDIOGRAPHIC MEASUREMENTS (adult normal given) AC root (d.<3.7cm) cm LV Septum d (<1.2 cm> cm Valve Excursion cm LV Septum (systole) cm Left Atria (s.<4.0cm> cm LVPW d(<1.2cm) cm RV (d.<2.3cm) cm LVPW (sytole) cm LV diastole(<5.6CM) cm MV E-F(>70mm/sec) cm LV systole cm LVOT Diameter cm MV exc.(>10mm) cm Est.ejection fraction (50-75%) % DOPPLER: LVIT cm/sec A cm/sec E cm/sec LA cm/sec RVSP mmHg LVOT cm/sec AOP1/2T m/s Asc. Ao cm/sec RVOT cm/sec RA cm/sec PA cm/sec AV Gradient Peak mmHg AV Mean mmHg AV Area cm MV Gradient Peak mmHg MV Mean mmHg MV Area cm COMMENTS: Director Of Rooms: [employer]: MIYA# Pericardial Effusion DATE OF SERVICE: 01/04/2018 PROCEDURE: Echocardiogram. FINDINGS: 1. Left ventricular chamber size is within normal limits. Left ventricular systolic function is normal. Overall ejection fraction estimated at 60%. 2. Left atrium, right atrium, right ventricle chamber size is within normal limits. 3. Valvular structures have normal structure and motion. No evidence of ECHOCARDIOGRAM REPORT [id number] ELIZABETH HORAN bacterial endocarditis. 4. Doppler interrogation reveals only trace tricuspid regurgitation, no other valvular insufficiency or stenosis. Pulmonary systolic pressure is normal, estimated 28 mmHg. OVERALL IMPRESSION: Normal echocardiogram. No evidence of vegetative endocarditis. TRANSINT:[id number] Voice Confirmation ID: [id number] DOCUMENT ID: [id number] STUART OZUNA MD at 3196 CC: [id number] DICTATION DATE: 01/04/18 1320 LIMOUSINE DRIVER: 01/04/[address] [facility] [address] [place] [address]
--- NOTE | ~2018-01-03 | OP ---
PATIENT NAME: ELIZABETH HORAN MEDICAL RECORD: [id number] :76 LOCATION:D.M2 D.2127 ADMISSION DATE:01/03/18 SURGEON: ANAI DOYLE MD DATE OF OPERATION: 01/04/2018 PROCEDURE: Left heart catheterization, selective coronary angiography, right radial approach. CATHETERS: A Martin catheter, radial sheath. The procedure was well tolerated. The patient returned to quevedo. Sheath was removed. TR band was placed. FINDINGS: Left ventriculography in the 30-degree MUELLER view. Normal wall motion, normal systolic function. CORONARY ANATOMY: LEFT MAIN: Left main is free of disease. LAD: Free of disease in the diagonal system. CIRCUMFLEX: Free of disease in the diagonal system. RIGHT CORONARY ARTERY: Dominant artery, gives rise to PDA, free of disease. IMPRESSION: Normal systolic function. Normal coronary anatomy. TRANSINT:[id number] Voice Confirmation ID: [id number] DOCUMENT ID: [id number] ANAI DOYLE MD at 1214 CC: [id number] DICTATION DATE: 01/04/18 1520 DIRECTOR SUMMER SESSIONS: 01/04/18 1556 DIS IN 01/04/18 [facility] [address] [place] [place] [address]
[~2018-01-03 15:40] MED LIST changes: -CATAPRES0.1 MG PO; -DIFLUCAN150 MG PO; -DOXYCYCLINE HY100 M2 PO; -MS CONTIN15 MG PO; -SOLARAZE100 GM TP
[2018-01-03 16:50] LABS: BASOPHILS 0.2 % (0-2); EOSINOPHILS 0.6 % (0-7); HEMATOCRIT 42.9 % (36.0-48.0); HEMOGLOBIN 13.9 g/dL (12-16); IMMATURE GRANULOCYTES 0.2 % (0-5); LYMPHOCYTES 27.1 % (15-50); MCH 28.1 pg (26.0-34.0); MCHC 32.4 g/dL (31.0-37.0); MCV 86.7 fL (80.0-100.0); MONOCYTES 6.3 % (2-11); NEUTROPHILS 65.6 % (40-80); PLATELET COUNT 277 10x3/uL (130-400); RBC 4.95 10x6/uL (4.00-5.40); RDW 13.9 % (11.5-14.5); WBC 9.7 10x3/uL (4.8-10.8)
[2018-01-03 17:01] LABS: APTT 23.9 SECONDS (22.8-39.4); INR 0.97 (0.85-1.17); PROTIME 12.5 SECONDS (11.6-15.0)
[2018-01-03 17:03] LABS: D-DIMER-QUANTITATIVE 0.38 ug/mLFEU (0.20-0.54)
[2018-01-03 17:11] LABS: ALBUMIN 3.7 g/dL (3.4-5.0); ALKALINE PHOSPHATASE 99 U/L (46-116); ALT (SGPT) 24 U/L (10-68); BILIRUBIN - TOTAL 0.18 mg/dL (0.2-1.3); CALC OSMOLALITY 278 mosm/kg (275-300); CALCIUM 9.6 mg/dL (8.5-10.1); CARBON DIOXIDE 26.8 mmol/L (21.0-32.0); CHLORIDE - SERUM 102 mmol/L (98-107); CREATININE - SERUM 0.8 mg/dL (0.6-1.3); GLUCOSE 163 mg/dL (74-106); POTASSIUM - SERUM 3.7 mmol/L (3.5-5.1); PROTEIN - SERUM 8.3 g/dL (6.4-8.2); SODIUM 138 mmol/L (136-145); UREA NITROGEN 11 mg/dL (7-18); eGFR NON AFRICAN AMERICAN 85 mL/min (90-120)
[2018-01-03 17:31] LABS: CREATINE KINASE 48 UL (21-215)
[2018-01-03 17:37] LABS: TROPONIN-I < 0.017 ng/mL (0.000-0.060)
[2018-01-03] MEDS ORDERED: HYDROCODONE-APA1 TAB PO (22:39)
[2018-01-03] MEDS ORDERED: SOLARAZE100 GM TP (22:43)
[2018-01-04 01:45] VITALS: Ht 177.8 cm; Wt 156.9 kg
[2018-01-04 01:46] VITALS: BP 102/74
[2018-01-04 05:40] VITALS: BP 106/46
[2018-01-04 08:33] VITALS: BP 97/58
[2018-01-04 10:30] LABS: BASOPHILS 0.1 % (0-2); EOSINOPHILS 0.9 % (0-7); HEMATOCRIT 38.1 % (36.0-48.0); HEMOGLOBIN 12.2 g/dL (12-16); IMMATURE GRANULOCYTES 0.1 % (0-5); LYMPHOCYTES 31.2 % (15-50); MCH 27.9 pg (26.0-34.0); MEAN PLATELET VOLUME 9.6 fL (7.4-10.4); NEUTROPHILS 63.7 % (40-80); PLATELET COUNT 231 10x3/uL (130-400); RBC 4.38 10x6/uL (4.00-5.40); WBC 7.9 10x3/uL (4.8-10.8)
[2018-01-04 11:07] LABS: CALC OSMOLALITY 287 mosm/kg (275-300); CALCIUM 8.8 mg/dL (8.5-10.1); CARBON DIOXIDE 24.2 mmol/L (21.0-32.0); CHLORIDE - SERUM 105 mmol/L (98-107); CKMB 0.2 U/L (0.0-3.6); CREATINE KINASE 36 UL (21-215); GLUCOSE 208 mg/dL (74-106); POTASSIUM - SERUM 3.9 mmol/L (3.5-5.1); SODIUM 141 mmol/L (136-145); TROPONIN-I < 0.017 ng/mL (0.000-0.060); eGFR NON AFRICAN AMERICAN 65 mL/min (90-120)
[2018-01-04 11:09] LABS: UREA NITROGEN 15 mg/dL (7-18)
[2018-01-04 11:41] VITALS: BP 132/73
[2018-01-04] MEDS ORDERED: DIFLUCAN150 MG PO (16:52)
[2018-01-04] MEDS ORDERED: CATAPRES0.1 MG PO (16:52)
[2018-01-04] MEDS ORDERED: DOXYCYCLINE HY100 M2 PO (16:52)
[2018-02-05] MEDS ORDERED: MS CONTIN15 MG PO (11:01)
== END 2018-01-04 19:35 | disposition home or self-care (01) | DRG 287 ==
LOC: D.ER 15:40 → D.M2 19:58 → D.EDHOLD 19:58 → D.M2 20:35
PROVIDERS: Family Medicine; Internal Medicine Interventional Cardiology
PROC: B2151ZZ Fluoroscopy of Left Heart using Low Osmolar Contrast (ICD-10-PCS; 2018-01-04)
PROC: 4A023N7 Measurement of Cardiac Sampling and Pressure, Left Heart, Percutaneous Approach (ICD-10-PCS; 2018-01-04)
PROC: B2111ZZ Fluoroscopy of Multiple Coronary Arteries using Low Osmolar Contrast (ICD-10-PCS; principal; 2018-01-04 12:45)
DX: R07.89 Other chest pain (principal); Z68.41 Body mass index [BMI] 40.0-44.9, adult; E66.01 Morbid (severe) obesity due to excess calories; E11.65 Type 2 diabetes mellitus with hyperglycemia; E11.40 Type 2 diabetes mellitus with diabetic neuropathy, unspecified; K21.9 Gastro-esophageal reflux disease without esophagitis; M79.7 Fibromyalgia; Z86.718 Personal history of other venous thrombosis and embolism

== ENCOUNTER → 2018-02-01 09:16 | Outpatient (CLI) | payer MEDICAID ==
[~2018-02-01 09:16] MED LIST changes: +CATAPRES0.1 MG PO; +DIFLUCAN150 MG PO; +DOXYCYCLINE HY100 M2 PO; +MS CONTIN15 MG PO; +SOLARAZE100 GM TP
== END | disposition home or self-care (01) ==
LOC: D.MRI 09:16
DX: M54.5 Low back pain (principal)

== ENCOUNTER 2018-02-06 07:00 | Day surgery (SDC) | payer MEDICAID ==
[2018-02-05 11:46] LABS: HEMATOCRIT 41.3 % (36.0-48.0); HEMOGLOBIN 13.4 g/dL (12-16); MCH 27.9 pg (26.0-34.0); MCHC 32.4 g/dL (31.0-37.0); MCV 85.9 fL (80.0-100.0); RBC 4.81 10x6/uL (4.00-5.40); RDW 13.6 % (11.5-14.5); WBC 9.7 10x3/uL (4.8-10.8)
[2018-02-05 12:08] LABS: CALC OSMOLALITY 280 mosm/kg (275-300); CALCIUM 9.3 mg/dL (8.5-10.1); CARBON DIOXIDE 26.5 mmol/L (21.0-32.0); CHLORIDE - SERUM 105 mmol/L (98-107); CREATININE - SERUM 0.8 mg/dL (0.6-1.3); POTASSIUM - SERUM 3.7 mmol/L (3.5-5.1); SODIUM 139 mmol/L (136-145); UREA NITROGEN 15 mg/dL (7-18); eGFR NON AFRICAN AMERICAN 85 mL/min (90-120)
[2018-02-05 12:09] LABS: GLUCOSE 133 mg/dL (74-106)
[~2018-02-06] VITALS: Ht 177.8 cm; Wt 155.6 kg
--- NOTE | ~2018-02-06 | OP ---
PATIENT NAME: ELIZABETH HORAN MEDICAL RECORD: [id number] :76 LOCATION:D.OPS ADMISSION DATE: SURGEON: ALIN WILLIAMSON DPM DATE OF OPERATION: 02/06/2018 PREOPERATIVE DIAGNOSES: Rupture lateral collateral ligaments, left foot with left ankle capsulitis. POSTOPERATIVE DIAGNOSES: Rupture lateral collateral ligaments, left foot with left ankle capsulitis. PROCEDURES: 1. Left ankle arthroscopy. 2. Left lateral collateral ankle ligament reconstruction utilizing internal brace as well as gastroc aponeurosis graft. 3. Left gastroc recession with graft harvest. ANESTHESIA: Preoperative popliteal block per the anesthesia department. HEMOSTASIS: Left thigh tourniquet at 350 mmHg. PREOPERATIVE DETAILS: The patient was taken to the OR and placed on the operating room table in a supine position. This was followed by the left extremity being prepped and draped in usual aseptic technique. The left extremity was then exsanguinated and then tourniquet was inflated. PROCEDURE #1: Left ankle arthroscopy: A 15-blade was used to create 2 small stab incisions on the anterior medial and anterior lateral shoulders of the ankle joint. The camera was introduced through a portal in the lateral portal. Initial visualization of the ankle showed a significant capsulitis as well as chondromalacia. The lateral gutter was inspected showing considerable compromise of the ATF ligament as well as with inversion stress there was what appeared to be a calcaneal fibular ligament, which was very striated up into the lateral gutter. At this time, a synovial shaver was introduced into the medial portal and extensive debridement was performed. The ports were switched, continued debridement was achieved. Once adequate debridement of the synovitis and capsulitis as well as chondromalacia was performed, the camera and synovial shaver were removed. PROCEDURE #2: Left lateral collateral ligament reconstruction: A 15 blade was used to extend the lateral shoulder incision distally and proximally underneath the fibula. The incision was deepened down through subcutaneous tissue. There was a large lipoma, which was excised at that time giving access to the anterior lateral aspect of the ankle. A 15 blade was used to create a sharp incision into the joint capsule noting there was significant degeneration of the ATF ligament upon inspection. With visual inspection now of the ankle joint, the joint was placed in an inverted attitude noting that there was significant separation of the fibula from the talus indicating a complete rupture of the CF ligament. At this time, dissection was carried underneath the fibula, distal to the fibula and the CF ligament was visualized. At this time, preparations were made for the internal brace as well as the graft. At this time, the gastroc recession was performed with the hip flexed giving access to the back of the left leg. An incision was made 4 cm on the posterior aspect of the gastroc aponeurosis. Blunt dissection was carried down through the subcutaneous tissue to the paratenon. A linear incision was made, freeing the paratenon from the OPERATIVE REPORT [id number] ELIZABETH HORAN aponeurosis and a 3 cm x 8 mm graft was removed from the aponeurosis. The deficit was repaired with 2-0 Vicryl, the subcutaneous tissue with 2-0 Vicryl and the skin was closed with skin tatiana. The graft was placed in a saline Ray-Moses on the field. Continued preparation of the lateral collateral repair was performed. Once adequate, an internal brace was placed into the calcaneus and then into the distal fibula to reconstruct the CF ligament. At this time, the graft that was obtained from the gastroc recession was placed over the top of the internal brace utilizing 2-0 FiberWire to tag it in place. This afforded excellent repair and excellent reduction of the abnormal inversion stress results. At this time, the ATF ligament was then reconstructed utilizing the internal brace once again into the talus as well as the distal anterior fibula. Once the internal brace was in place, the anterior drawer test was negative. At this time, a modified Brostrom was then repaired over the top of the internal brace. Excellent range of motion of the joint was noted as well as lack of abnormal motion. The subcutaneous tissue was then repaired with 2-0 Vicryl and 4-0 Rapide and the skin was closed with 4-0 Rapide in a subcuticular technique followed by Dermabond. The medial incision over the medial shoulder was also closed with 4-0 Rapide in a simple interrupted technique. Dermabond was also placed. Adaptic, 4 x 4 and Conform were used to dress the wounds followed by application of modified Flowers compression dressing. Tourniquet was deflated. POSTOPERATIVE DETAILS: The patient tolerated the procedure well and left the OR with vital signs stable and vascular status at preoperative levels. The patient was transported to recovery per anesthesia in stable condition. TRANSINT:[id number] Voice Confirmation ID: [id number] DOCUMENT ID: [id number] ALIN WILLIAMSON DPM at 0918 CC: [id number] DICTATION DATE: 02/06/18 1107 FOOD BEVERAGE SERVER: 02/06/18 1310 [facility] 02/06/18 [place] [id number] [place] [id number]
[2018-02-06 07:33] VITALS: BP 142/93; Ht 177.8 cm; Wt 155.6 kg
[2018-02-06 08:01] LABS: HCG URINE NEGATIVE (NEGATIVE)
== END 2018-02-06 13:35 | disposition home or self-care (01) ==
LOC: D.OPS 07:00 → D.PAN 10:00 → D.OPS 10:00
PROVIDERS: Anesthesiology; Podiatrist
DX: S93.492A Sprain of other ligament of left ankle, initial encounter (principal); M77.52 Other enthesopathy of left foot and ankle; Z01.812 Encounter for preprocedural laboratory examination

== ENCOUNTER → 2018-04-26 15:15 | Outpatient (CLI) | payer MEDICAID ==
[2018-02-06 07:33] VITALS: BMI 49.3
[2018-04-30 17:11] LABS: ANCA - ANTIMYELOPEROXIDASE <9.0 U/mL (0.0-9.0); ANCA - ANTIPROTEINASE 3 <3.5 U/mL (0.0-3.5); ANCA - ATYPICAL <1:20 titer (Neg:<1:20); ANCA - CYTOPLASMIC <1:20 titer (Neg:<1:20); ANCA - PERINUCLEAR <1:20 titer (Neg:<1:20)
== END | disposition home or self-care (01) ==
LOC: D.LABREF 15:15
PROVIDERS: Student in an Organized Health Care Education/Training Program
DX: R50.9 Fever, unspecified (principal)

== ENCOUNTER → 2018-05-10 14:12 | Outpatient (CLI) | payer MEDICAID ==
[2018-02-06 07:33] VITALS: BMI 49.3
== END | disposition home or self-care (01) ==
LOC: D.LABREF 14:12
DX: R78.81 Bacteremia (principal)

== ENCOUNTER → 2018-05-31 13:21 | Outpatient (CLI) | payer MEDICAID ==
[2018-02-06 07:33] VITALS: BMI 49.3
== END | disposition home or self-care (01) ==
LOC: D.CT 05-14 15:30
DX: H66.91 Otitis media, unspecified, right ear (principal)

== ENCOUNTER → 2018-10-16 11:19 | Outpatient (CLI) | payer MEDICAID ==
[2018-02-06 07:33] VITALS: BMI 49.3
== END | disposition home or self-care (01) ==
LOC: D.NM 09-26 13:00
DX: R68.81 Early satiety (principal)

== ENCOUNTER → 2020-01-13 09:24 | Outpatient (CLI) | payer MEDICAID ==
[2018-02-06 07:33] VITALS: BMI 49.3
== END | disposition home or self-care (01) ==
LOC: D.RAD 09:24
PROVIDERS: ATTEND Internal Medicine Pulmonary Disease
DX: J45.909 Unspecified asthma, uncomplicated (principal); R07.1 Chest pain on breathing

== ENCOUNTER 2020-12-03 18:03 | Outpatient (CLI) | payer MEDICARE ==
[2018-02-06 07:33] VITALS: BMI 49.3
== END 2020-12-03 23:59 | disposition home or self-care (01) ==
LOC: D.MAMMO 18:03
PROVIDERS: ATTEND Clinical Nurse Specialist Family Health
DX: Z12.31 Encounter for screening mammogram for malignant neoplasm of breast (principal)